=== PATIENT | male | born 1995 | race Caucasian/White ===

== ENCOUNTER 2017-09-26 10:31 | Emergency (ER) | payer OTHER ==
[~2017-09-26] VITALS: Ht 170.2 cm; Wt 74.2 kg
[2017-09-26 10:33] VITALS: BP 171/72
[2017-09-26] MEDS ORDERED: LIDOCAINE-MPF 1%, 5ML ONE (10:53)
[2017-09-26] MEDS ORDERED: LIDOCAINE-MPF 1%, 5ML INFIL ONE (11:00)
[2017-09-26] MEDS ORDERED: CEFAZOLIN 1,000 MG ONE ×2 (11:49→12:17)
[2017-09-26] MEDS ORDERED: CEFAZOLIN 1,000 MG IM ONE (12:00)
== END 2017-09-26 13:06 | disposition home or self-care (01) ==
LOC: ED 13:00
DX: S62.611B Displaced fracture of proximal phalanx of left index finger, initial encounter for open fracture (principal); W29.4XXA Contact with nail gun, initial encounter; Y93.89 Activity, other specified; Y92.89 Other specified places as the place of occurrence of the external cause; Y99.8 Other external cause status
CPT/HCPCS: 29130; 73140; 96372; 99284; J0690